=== PATIENT | male | born 1985 | race Caucasian/White ===

== ENCOUNTER 2022-06-22 07:00 | Emergency (ER) | payer BC, SELFPAY ==
[2022-06-22 07:19] VITALS: BP 133/100; PULSE 79; RESP 18; TEMP 36.4; O2SAT 96; BMI 26.2
--- NOTE | 2022-06-22 07:49 | ED_ITS ---
HPI - General Adult General Stated complaint: Tremor/Balance issue/Panic attack Time Seen by Provider: 06/22/22 07:25 Source: patient and family Mode of arrival: ambulatory Limitations: no limitations History of Present Illness HPI narrative: 37-year-old male with a history of prior depression and anxiety presents to the emergency department feeling and achy. He started Zoloft 5 days ago at 50 mg once daily, did not titrate dose. States the symptoms started within about 4 hours of taking his 1st dose of medication, initially with a lightheaded feeling. He states that the symptoms have been persistent for the last few days and he wonders what to do. He did not try calling his provider. He denies prior history of suicide attempt, denies suicidal thoughts. No prior inpatient mental health treatment. No fevers. He does not have a history of any movement disorders or seizure disorder. Denies alcohol use in the last few days, no history of significant heavy alcohol use. The medication was started due to ongoing depression and anxiety which has been present for several years. He reports that he did also try taking Lexapro for about a month a few years ago but did not notice improvement in his symptoms. From his 's description, it sounds like he was evaluated in the ED for similar symptoms a couple of days after starting the Lexapro also. He has not tried medications from other classe s to treat depression or anxiety. He does feel safe at this time. No prior history of thyroid or cardiac disease. Did not try any other remedies to help with his symptoms prior to coming to the ED. His last dose of the medication was yesterday morning. He states that his past medical history is benign besides the depression. No prior surgeries, no long-term medications. Socially he denies cannabis use, stimulant use besides coffee. No recent pertinent travel. Related Data Home Medications Medication Instructions Recorded Confirmed sertraline 50 mg tablet mg 06/22/22 Allergies Allergy/AdvReac Type Severity Reaction Status Date / Time No Known Drug Allergies Allergy Verified 06/22/22 07:22 Exam Const: Vital Signs, click to edit/add: Vital Signs - 24 hr 06/22/22 07:19 Temperature 97.5 F L Pulse Rate [Left P ulse Oximeter] 79 Respiratory Rate 18 Blood Pressure [Le ft Upper Arm] 133/100 H Pulse Oximetry 96 Oxygen Delivery Me thod Room Air Documenting provider has reviewed patient's vital signs: yes Common normals: no apparent distress General appearance: cooperative, comfortable and well kempt Other: Mildly anxious but behavior appropriate. No tremors, normal gait. Normal visual gait is HENMT: Common normals: normocephalic Head and scalp: normocephalic Mouth: oral and palatal mucosa normal Throat: posterior oropharynx normal Other: No tongue fasciculations. Eye: Common normals: PERRL, EOMs intact bilaterally, conjunctivae normal and no scleral icterus Conjunctiva: conjunctiva(e) normal Pupil: PERRL Other: Normal visual tracking, no nystagmus Neck & C-Spine: Common normals: full ROM and no lymphadenopathy Cervical spine: cervical ROM normal Resp: Common normals: normal respiratory effort and clear to auscultation bilaterally Effort & inspection: able to speak in complete sentences Auscultation: clear to auscultation bilaterally Cardio: Common normals: regular rate, regular rhythm, S1 normal heart sound, S2 normal heart sound, no murmurs and peripheral pulses 2+ throughout Rate: regular rate Rhythm: regular rhythm Heart sounds: S1 normal and S2 normal Peripheral pulses: pulses 2+ throughout GI: Common normals: Normal to inspection, nondistended, normoactive bowel sounds present, soft to palpation, non-tender, no hepatosplenomegaly and no masses Palpation: soft and no hepatosplenomegaly Extremity: Common normals: normal to inspection, full ROM and normal capillary refill Neuro: Coordination/balance: tandem gait normal, does not sway with eyes open and Romberg test negative Speech: speech normal Gait (neuro): normal gait Motor exam: strength 5/5 throughout, no pronator drift, no tremor noted, no asterixis, no fasciculations, muscle tone normal throughout and no movement abnormalities noted Coordination: tandem gait normal and does not sway with eyes open Psych: Common normals: thought process normal and speech normal Appearance: well kempt Speech: normal speech Thought process: normal thought process Thought content: normal thought content Memory/cognition: memory grossly intact Insight: insight good Judgement: judgment good Skin: Common normals: no rashes or lesions noted General skin exam: no rashes or lesions noted Course Vital Signs Vital signs: Initial Vital Signs Temperature 97.5 F L 06/22/22 07:19 Temperature Source Temporal Artery Scan 06/22/22 07:19 Pulse Rate 79 10/24/22 07:19 Respiratory Rate 18 06/22/22 07:19 Blood Pressure 133/100 H 06/22/22 07:19 Blood Pressure Mean 111 06/22/22 07:19 Blood Pressure Position Sitting 06/22/22 07:19 Pulse Oximetry 96 06/22/22 07:19 Oxygen Delivery Method 06/22/22 07:19 Vital Signs Temperature 97.5 F L 06/22/22 07:19 Pulse Rate 79 06/22/22 07:19 Respiratory Rate 18 06/22/22 07:19 Blood Pressure 133/100 H 06/22/22 07:19 Pulse Oximetry 96 06/22/22 07:19 Oxygen Delivery Method 06/22/22 07:19 Temperature 97.5 F L 06/22/22 07:19 Pulse Rate 79 06/22/22 07:19 Respiratory Rate 18 06/22/22 07:19 Blood Pressure 133/100 H 06/22/22 07:19 Pulse Oximetry 96 06/22/22 07:19 Oxygen Delivery Method 06/22/22 07:19 Medical Decision Making MDM Narrative Medical decision making narrative: Differential diagnosis includes mental health disorder, medication side effect, serotonin syndrome, other metabolic disorders. No tachycardia, no fever. No tremors, neurological changes that would be suspicious for toxicity or serotonin syndrome. Suspect side effects to medication, mild at best. Discussed risks and benefits of stopping medication which patient would like to do. Offered benzodiazepine to help alleviate side effects, patient declines at this time. I do recommend that he continue to go to work and would have no restrictions at this time. He will follow up with his primary care provider in a week for reassessment. Discontinue sertraline at this time. Discharge Plan Discharge Clinical Impression: Medication side effects Patient Disposition: Home w/ Parent or Adult Condition: Stable Instructions: Adverse Drug Reaction (ED) Additional Instructions: There are no signs of toxicity or dangerous side effects from her medication. Unfortunately, I think that the side effects of this medication are more bothersome to you than the medication is helpful. Often, the symptoms will improve over time but this may take weeks. It is possible that this was just started at a little too high of a dose as well. For now, I would recommend that you stop the sertraline altogether. If he skipped today's dose, you should sta rt feeling better tomorrow and her symptoms should be fully resolved within a few days. I offered you a dose of a benzodiazepine like Ativan to help minimize the side effects, you decline. Often, Benadryl can help as well for the next couple of days taken 25 mg up to 3 times daily. I would recommend that he make a follow-up appointment with your prescribing physician for next week. You can further discuss her depression, possibility of lab testing, a different medication if the 2 of you decide this is right for you. Activity Level: No Restrictions Discharge Diet: Regular Prescriptions: No Action sertraline 50 mg tablet Stand Alone Forms: [employer] Info Instructions
== END 2022-06-22 08:45 | disposition home or self-care (01) ==
LOC: ED 08:06
PROVIDERS: Emergency Provider Family Medicine
DX: R42 Dizziness and giddiness (principal); T43.225A Adverse effect of selective serotonin reuptake inhibitors, initial encounter; Y92.009 Unspecified place in unspecified non-institutional (private) residence as the place of occurrence of the external cause
CPT/HCPCS: 99282